=== PATIENT | male | born 1950 | race Caucasian/White ===

== ENCOUNTER 2017-09-01 16:00 | Inpatient (IN) | payer MEDICARE, OTHER ==
[2017-09-01] MEDS ORDERED: Albuterol/Ipratropium 3.0-0.5 MG/3 ML Neb Soln NEB ONE (17:10)
[2017-09-01] MEDS ORDERED: Acetaminophen 500 MG Tab PO ONE (17:13)
--- NOTE | 2017-09-01 17:19 | EDM.PDOC ---
ED HPI GENERAL MEDICAL PROBLEM - General Chief Complaint: Respiratory Problem Stated Complaint: CHEST PAIN,SOB Time Seen by Provider: 09/01/17 16:45 Source of Information: Reports: Patient, Family History Limitations: Reports: No Limitations - History of Present Illness INITIAL COMMENTS - FREE TEXT/NARRATIVE: 67 YO WM presents to ER complaining of 3 day history of shortness of breath with productive cough and left sided chest pain. Pt reports history of CAD with CABG x 3 vessels 2009. Pt also with history of COPD and remote tobacco use ( quit in 2009). Pt states he has been using his advair BID but hasn't used his rescue inhaler. Pt states he feels better on oxygen. Onset Date: 08/30/17 Duration: Day(s): (3), Waxing/Waning Location: Reports: Chest Quality: Reports: Pressure Severity: Mild Associated Symptoms: Reports: Chest Pain, cough w sputum, Fever/Chills, Loss of Appetite, Shortness of Breath. 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 - Related Data Allergies Allergy/AdvReac Type Severity Reaction Status Date / Time No Known Drug Allergies Allergy Other Verified 09/01/17 16:51 Home Meds: Home Meds Albuterol [Proventil HFA] 1 puff INH Q4H PRN 09/01/17 [History] Aspirin [Adult Low Dose Aspirin EC] 81 mg PO BEDTIME 09/01/17 [History] Calcium Carbonate/Vitamin D3 [Calcium 500 + Vit D Caplet] 1 tab PO BID 09/01/17 [History] Carvedilol [Carvedilol] 25 mg PO BIDMEALS 09/01/17 [History] Cholecalciferol (Vitamin D3) [Vitamin D3] 2,000 unit PO DAILY 09/01/17 [History] Clopidogrel [Plavix] 75 mg PO BEDTIME 09/01/17 [History] Fenofibrate [Fenofibrate] 160 mg PO BEDTIME 09/01/17 [History] Fluticasone/Salmeterol [Advair 250-50 Diskus] 1 puff INH BID 09/01/17 [History] Furosemide 20 mg PO 1800 09/01/17 [History] Furosemide 40 mg PO DAILY 09/01/17 [History] Losartan [Cozaar] 100 mg PO DAILY 09/01/17 [History] Simvastatin [Zocor] 20 mg PO BEDTIME 09/01/17 [History] metFORMIN HCl [Metformin HCl ER] 1,000 mg PO BID 09/01/17 [History] Past Medical History HEENT History: Reports: Impaired Vision Cardiovascular History: Reports: [place] Respiratory History: Reports: COPD Genitourinary History: Reports: None Endocrine/Metabolic History: Reports: Diabetes, Type II - Past Surgical History Head Surgeries/Procedures: Reports: None HEENT Surgical History: Reports: Cataract Surgery Cardiovascular Surgical History: Reports: Coronary Artery Bypass Other Cardiovascular Surgeries/Procedures: 3 vessel bypass 2009 Respiratory Surgical History: Reports: None Social & Family History - Family History Family Medical History: Noncontributory - Tobacco Use Smoking Status *Q: Former Smoker Years of Tobacco use: 40 Used Tobacco, but Quit: Yes Month Tobacco Last Used: 10 Second Hand Smoke Exposure: No - Caffeine Use Caffeine Use: Reports: Coffee - Recreational Drug Use Recreational Drug Use: No ED ROS GENERAL - Review of Systems Review Of Systems: See Below Constitutional: Reports: Fever, Chills HEENT: Reports: No Symptoms Respiratory: Reports: Shortness of Breath, Wheezing, Cough, Sputum Cardiovascular: Reports: Chest Pain Endocrine: Reports: No Symptoms GI/Abdominal: Reports: No Symptoms : Reports: No Symptoms Musculoskeletal: Reports: No Symptoms Skin: Reports: No Symptoms Neurological: Reports: No Symptoms Psychiatric: Reports: No Symptoms Hematologic/Lymphatic: Reports: No Symptoms Immunologic: Reports: No Symptoms ED EXAM, GENERAL - Physical Exam Exam: See Below Exam Limited By: No Limitations General Appearance: Alert, WD/WN, No Apparent Distress Nose: Normal Inspection, Normal Mucosa, No Blood Throat/Mouth: Normal Inspection, Normal Lips, Normal Teeth, Normal Gums, Normal Oropharynx, Normal Voice, No Airway Compromise Head: Atraumatic, Normocephalic Neck: Normal Inspection, Supple, Non-Tender, Full Range of Motion Respiratory/Chest: No Respiratory Distress, No Accessory Muscle Use, Chest Non- Tender, Decreased Breath Sounds, Wheezing Cardiovascular: Normal Peripheral Pulses, Regular Rate, Rhythm, No Edema, No Gallop, No JVD, No Murmur, No Rub, Tachycardia GI/Abdominal: Normal Bowel Sounds, Soft, Non-Tender, No Organomegaly, No Distention, No Abnormal Bruit, No Mass Back Exam: Normal Inspection, Full Range of Motion, NT Extremities: Normal Inspection, Normal Range of Motion, Non-Tender, Normal Capillary Refill, No Pedal Edema Neurological: Alert, Oriented, CN II-XII Intact, Normal Cognition, Normal Gait, Normal Reflexes, No Motor/Sensory Deficits Psychiatric: Normal Affect, Normal Mood Skin Exam: Warm, Dry, Intact, Normal Color, No Rash Lymphatic: No Adenopathy EKG INTERPRETATION EKG Date: 09/01/17 Time: 16:41 Rhythm: NSR Rate (Beats/Min): 119 [place]: Normal P-Wave: Present QRS: Normal ST-T: Normal QT: Normal Comparison: NA - No Prior EKG Course - Vital Signs Last Recorded V/S: Last Vital Signs Temp 38.2 C H 09/01/17 17:17 Pulse 117 H 09/01/17 17:11 Resp 24 H 09/01/17 16:37 BP 149/85 H 09/01/17 16:37 Pulse Ox 97 09/01/17 17:11 - Orders/Labs/Meds Orders: Active Orders 24 hr Category Date Time Status EKG Documentation Completion [RC] ASDIRECTED Care 09/01/17 16:32 Active RT Aerosol Therapy [RC] ASDIRECTED Care 09/01/17 17:11 Active Chest 2V [CR] Stat Exams 09/01/17 16:32 Taken CULTURE BLOOD [BC] Stat Lab 09/01/17 17:13 Ordered CULTURE BLOOD [BC] Stat Lab 09/01/17 17:13 Ordered INFLUENZA A+B AG SCREEN [RM] Stat Lab 09/01/17 16:35 Received Blood Culture x2 Reflex Set [OM.PC] Stat Oth 09/01/17 17:12 Ordered EKG 12 Lead [EK] Routine Ther 09/01/17 16:32 Ordered Labs: Laboratory Tests 09/01/17 09/01/17 Range/Units 16:35 16:35 WBC 6.6 (5.0-10.0) 10^3/uL RBC 3.86 L (4.50-6.00) 10^6/uL Hgb 11.9 L (13.0-17.0) g/dL Hct 35.4 L (40.0-52.0) % MCV 91.6 (82.0-92.0) fL MCH 30.8 (27.0-31.0) pg MCHC 33.6 (32.0-36.0) g/dL RDW 13.5 (11.5-14.5) % Plt Count 207 (150-300) 10^3/uL MPV 6.8 L (7.4-10.4) fL Neut % (Auto) 80.1 H (50.0-70.0) % Lymph % (Auto) 7.2 L (20.0-40.0) % [place] % (Auto) 11.2 H (2.0-8.0) % Eos % (Auto) 0.4 L (1.0-3.0) % Baso % (Auto) 1.1 H (0.0-1.0) % Neut # (Auto) 5.3 (2.5-7.0) 10^3/uL Lymph # (Auto) 0.5 L (1.0-4.0) 10^3/uL [place] # (Auto) 0.7 (0.1-0.8) 10^3/uL Eos # (Auto) 0.0 L (0.1-0.3) 10^3/uL Baso # (Auto) 0.1 (0.0-0.1) 10^3/uL Sodium 143 (136-145) mmol/L Potassium 4.7 (3.3-5.3) mmol/L Chloride 104 (98-115) mmol/L Carbon Dioxide 25.3 (21.0-32.0) mmol/L BUN 27 H (6-25) mg/dL Creatinine 1.67 H (0.51-1.17) mg/dL Est Cr Clr Drug Dosing 42.10 mL/min Estimated GFR (MDRD) 41 mL/min Glucose 203 H (70-110) mg/dL Calcium 9.1 (8.7-10.3) mg/dL Total Bilirubin 1.2 H (0.2-1.0) mg/dL AST 39 H (15-37) U/L ALT 53 (12-78) U/L Alkaline Phosphatase 58 (46-116) IU/L Creatine Kinase 97 (26-276) U/L CK-MB (CK-2) < 0.50 (0.00-4.30) ng/mL Troponin I 0.10 H* (0.00-0.070) ng/mL B-Natriuretic Peptide 349 H (0-100) pg/mL Total Protein 8.2 (6.4-8.2) g/dL Albumin 4.17 (3.00-4.80) g/dL Meds: Medications Discontinued Medications Generic Name Dose Route Start Last Admin Trade Name Roldan PRN Reason Stop Dose Admin Acetaminophen 1,000 mg 09/01/17 17:13 09/01/17 17:17 Tylenol Extra Strength PO 09/01/17 17:14 1,000 mg ONETIME ONE Administration Albuterol/Ipratropium 3 ml 09/01/17 17:10 09/01/17 17:18 Duoneb 3.0-0.5 Mg/3 Ml NEB 09/01/17 17:11 3 ml ONETIME ONE Administration - Radiology Interpretation Free Text/Narrative:: CXR- NAD Departure - Departure Time of Disposition: 18:06 Disposition: Admitted As Inpatient 67 Condition: Fair Clinical Impression: Influenza A, Hypoxia, COPD exacerbation, Elevated troponin I level, Renal insufficiency, mild - Discharge Information Referrals: Lana Sousa, [employer] WORKER [Primary Care Provider] - Forms: ED Department Discharge - My Orders Last 24 Hours: My Active Orders 09/01/17 16:32 EKG Documentation Completion [RC] ASDIRECTED Chest 2V [CR] Stat EKG 12 Lead [EK] Routine 09/01/17 16:35 INFLUENZA A+B AG SCREEN [RM] Stat 09/01/17 17:11 RT Aerosol Therapy [RC] ASDIRECTED 09/01/17 17:12 Blood Culture x2 Reflex Set [OM.PC] Stat 09/01/17 17:13 CULTURE BLOOD [BC] Stat CULTURE BLOOD [BC] Stat - Assessment/Plan Last 24 Hours: My Active Orders 09/01/17 16:32 EKG Documentation Completion [RC] ASDIRECTED Chest 2V [CR] Stat EKG 12 Lead [EK] Routine 09/01/17 16:35 INFLUENZA A+B AG SCREEN [RM] Stat 09/01/17 17:11 RT Aerosol Therapy [RC] ASDIRECTED 09/01/17 17:12 Blood Culture x2 Reflex Set [OM.PC] Stat 09/01/17 17:13 CULTURE BLOOD [BC] Stat CULTURE BLOOD [BC] Stat Assessment:: 1. COPD exacerbation 2. Influenza A 3. elevated trop I 4. Hypoxia 5. Renal insufficiency Plan: 1. Admit for hypoxia- [place] Sudheer 2. oxygen 3. tamiflu 4. supportive care 5. repeat trop I/labs in am 6. duoneb tx Q4
[2017-09-01 17:27] LABS: CHLORIDE,CL 104 mmol/L (98-115); SODIUM,NA 143 mmol/L (136-145)
[2017-09-01] MEDS ORDERED: Sodium Chloride 0.9% 5 ML Syringe FLUSH PRN (17:58)
[2017-09-01] MEDS ORDERED: Albuterol/Ipratropium 3.0-0.5 MG/3 ML Neb Soln NEB PRN (17:58)
[2017-09-01] MEDS ORDERED: Acetaminophen 325 MG Tab PO PRN (17:58)
[2017-09-01] MEDS ORDERED: methylPREDNISolone Sodium Succinate 125 MG/2 ML SDV IVPUSH ONE (18:03)
[2017-09-01] MEDS ORDERED: Nitroglycerin 2% Oint 1 GM UD Packet TOP PRN (18:04)
[2017-09-01] MEDS: Aspirin 325 MG Tab.EC PO SCH (19:11)
[2017-09-01] MEDS: Oseltamivir 75 MG Cap PO SCH ×2 (19:11→20:00)
[2017-09-01] MEDS ORDERED: Heparin Sodium 5,000 Units/ML Vial IVPUSH ONE (19:59)
[2017-09-01] MEDS ORDERED: Nitroglycerin 0.4 MG Tab.SL SL PRN (20:19)
[2017-09-01] MEDS ORDERED: Lidocaine 2% 100 MG/5 ML Syringe IVPUSH PRN (20:19)
[2017-09-01] MEDS ORDERED: EPINEPHrine 1:10,000 1 MG/10 ML Syringe IVPUSH PRN (20:19)
[2017-09-01] MEDS ORDERED: Atropine 0.1 MG/ML 10 ML Syringe IVPUSH PRN (20:19)
[2017-09-01] MEDS ORDERED: Heparin Sodium 5,000 Units/ML Vial SUBCUT ONE (20:28)
[2017-09-01] MEDS ORDERED: Fenofibrate 160 MG Tab PO SCH (21:00)
[2017-09-01] MEDS: Simvastatin 20 MG Tab PO SCH (21:40)
[2017-09-01] MEDS: Fluticasone/Salmeterol 250-50 MCG Inhalation Powder 14/Diskus INH SCH (21:40)
[2017-09-01] MEDS: Clopidogrel 75 MG Tab PO SCH (21:40)
[2017-09-02] MEDS: Fluticasone/Salmeterol 250-50 MCG Inhalation Powder 14/Diskus INH SCH ×2 (07:25→20:29)
[2017-09-02] MEDS: Calcium Citrate/Vitamin D3 315 MG-250 Unit Tab PO SCH ×2 (07:32→17:33)
[2017-09-02] MEDS: Carvedilol 12.5 MG Tab PO SCH ×2 (07:35→17:33)
[2017-09-02] MEDS: Insulin Aspart 100 Units/ML 3 ML Pen SUBCUT SCH ×3 (07:55→17:32)
[2017-09-02] MEDS: Losartan 50 MG Tab PO SCH (08:01)
[2017-09-02] MEDS: Furosemide 40 MG Tab PO SCH (08:02)
[2017-09-02] MEDS: Cholecalciferol (Vitamin D3) 1,000 Unit Tab PO SCH (08:02)
[2017-09-02] MEDS: Oseltamivir 75 MG Cap PO SCH ×2 (08:02→20:30)
[2017-09-02] MEDS: Aspirin 325 MG Tab.EC PO SCH (08:02)
[2017-09-02] MEDS ORDERED: Sodium Chloride 0.9% 750 ML IV ONE (09:19)
[2017-09-02] MEDS ORDERED: Fenofibrate 160 MG Tab PO SCH (09:25)
--- NOTE | 2017-09-02 09:44 | PCM.HP ---
H&P History of Present Illness - General Date of Service: 09/02/17 Admit Problem/Dx: Admission Diagnosis/Problem Admission Diagnosis/Problem Hypoxia Source of Information: Patient, Old Records, RN History Limitations: Reports: No Limitations - History of Present Illness Initial Comments - Free Text/Narative: This is a 67 year old male who presented to the ED with complaints of 3 days of shortness of breath with a productive cough and left-sided chest pain. The patient was worked up in the ED and found to be positive for influenza A, COPD exacerbation, and rule out CT. The patient's past medical history is significant for COPD for which he uses Advair. He also has a history of a CABG x 3 in 2009. He quit smoking in 2009. He lives at home with his . He did not receive an influenza vaccine this year, but has received a pneumonia vaccine. - Related Data Allergies/Adverse Reactions: Allergies Allergy/AdvReac Type Severity Reaction Status Date / Time No Known Drug Allergies Allergy Other Verified 09/01/17 16:51 Home Medications: Home Meds Albuterol [Proventil HFA] 1 puff INH Q4H PRN 09/01/17 [History] Aspirin [Adult Low Dose Aspirin EC] 81 mg PO BEDTIME 09/01/17 [History] Calcium Carbonate/Vitamin D3 [Calcium 500 + Vit D Caplet] 1 tab PO BID 09/01/17 [History] Carvedilol [Carvedilol] 25 mg PO BIDMEALS 09/01/17 [History] Cholecalciferol (Vitamin D3) [Vitamin D3] 2,000 unit PO DAILY 09/01/17 [History] Clopidogrel [Plavix] 75 mg PO BEDTIME 09/01/17 [History] Fenofibrate [Fenofibrate] 160 mg PO BEDTIME 09/01/17 [History] Fluticasone/Salmeterol [Advair 250-50 Diskus] 1 puff INH BID 09/01/17 [History] Furosemide 20 mg PO 1800 09/01/17 [History] Furosemide 40 mg PO DAILY 09/01/17 [History] Losartan [Cozaar] 100 mg PO DAILY 09/01/17 [History] Simvastatin [Zocor] 20 mg PO BEDTIME 09/01/17 [History] metFORMIN HCl [Metformin HCl ER] 1,000 mg PO BID 09/01/17 [History] Past Medical History HEENT History: Reports: Impaired Vision Cardiovascular History: Reports: CT Respiratory History: Reports: COPD Genitourinary History: Reports: None Endocrine/Metabolic History: Reports: Diabetes, Type II - Infectious Disease History Infectious Disease History: Reports: Influenza - Past Surgical History Head Surgeries/Procedures: Reports: None HEENT Surgical History: Reports: Cataract Surgery Cardiovascular Surgical History: Reports: Coronary Artery Bypass Other Cardiovascular Surgeries/Procedures: 3 vessel bypass 2010 Respiratory Surgical History: Reports: None Social & Family History - Family History Family Medical History: Noncontributory - Tobacco Use Smoking Status *Q: Former Smoker Years of Tobacco use: 40 Used Tobacco, but Quit: Yes Month Tobacco Last Used: 10 Second Hand Smoke Exposure: No - Caffeine Use Caffeine Use: Reports: Soda - Recreational Drug Use Recreational Drug Use: No H&P Review of Systems - Review of Systems: Review Of Systems: See Below General: Reports: Chills, Weakness, Fatigue, Night Sweats, Decreased Appetite. Denies: Fever HEENT: Reports: Ear Pain (left ear), Glasses, Sinus Congestion. Denies: Headaches, Sore Throat Pulmonary: Reports: Cough, Sputum (dark brown). Denies: Shortness of Breath, Wheezing Cardiovascular: Denies: Chest Pain, Edema Gastrointestinal: Denies: Abdominal Pain, Constipation, Diarrhea, Nausea Genitourinary: Reports: No Symptoms Neurological: Denies: Headache Exam - Exam Exam: See Below - Vital Signs Vital Signs: Last Vital Signs Temp 98 F 09/02/17 06:29 Pulse 77 09/02/17 07:35 Resp 18 09/02/17 06:29 BP 110/67 09/02/17 08:01 Pulse Ox 97 09/02/17 07:25 Weight: 166 lb 6.4 oz - Exam Quality Assessment: Supplemental Oxygen (2 liters per nasal cannula saturation of 97%, does not typically wear oxygen), DVT Prophylaxis (Score of 2, will apply Shay stockings. Patient up and moving. ) General: Alert, Oriented, Cooperative, Other (No distress) HEENT: Conjunctiva Clear, Hearing Intact, Mucosa Moist & [place], Posterior Pharynx Clear, TMs Clear, Glasses Neck: Supple, Trachea Midline. No: Lymphadenopathy Lungs: Normal Respiratory Effort, Decreased Breath Sounds (throughout). No: Crackles, Rales, Wheezing Cardiovascular: Regular Rate, Regular Rhythm, Normal S1, Normal S2 GI/Abdominal Exam: Normal Bowel Sounds, Soft, Non-Tender Extremities: No Pedal Edema Skin: Warm, Dry Neurological: Normal Speech Neuro Extensive - Mental Status: Alert, Oriented x3, Normal Mood/Affect Psychiatric: Alert, Normal Affect, Normal Mood - Patient Data Lab Results Last 24 hrs: Laboratory Results - last 24 hr 09/02/17 09/02/17 09/02/17 Range/Units 07:20 07:20 07:31 WBC 4.5 L (5.0-10.0) 10^3/uL RBC 3.29 L (4.50-6.00) 10^6/uL Hgb 10.3 L D (13.0-17.0) g/dL Hct 30.5 L (40.0-52.0) % MCV 92.7 H (82.0-92.0) fL MCH 31.2 H (27.0-31.0) pg MCHC 33.6 (32.0-36.0) g/dL RDW 13.4 (11.5-14.5) % Plt Count 189 (150-300) 10^3/uL MPV 6.7 L (7.4-10.4) fL Neut % (Auto) 84.9 H (50.0-70.0) % Lymph % (Auto) 7.4 L (20.0-40.0) % [place] % (Auto) 7.2 (2.0-8.0) % Eos % (Auto) 0.2 L (1.0-3.0) % Baso % (Auto) 0.3 (0.0-1.0) % Neut # (Auto) 3.9 (2.5-7.0) 10^3/uL Lymph # (Auto) 0.3 L (1.0-4.0) 10^3/uL [place] # (Auto) 0.3 (0.1-0.8) 10^3/uL Eos # (Auto) 0.0 L (0.1-0.3) 10^3/uL Baso # (Auto) 0.0 (0.0-0.1) 10^3/uL Sodium 141 (136-145) mmol/L Potassium 4.5 (3.3-5.3) mmol/L Chloride 104 (98-115) mmol/L Carbon Dioxide 25.8 (21.0-32.0) mmol/L BUN 33 H (6-25) mg/dL Creatinine 1.40 H (0.51-1.17) mg/dL Est Cr Clr Drug Dosing 50.21 mL/min Estimated GFR (MDRD) 51 mL/min Glucose 238 H (70-110) mg/dL POC Glucose 215 H (74-106) mg/dl Calcium 8.8 (8.7-10.3) mg/dL Troponin I 0.06 (0.00-0.070) ng/mL Result Diagrams: 09/02/17 07:20 09/02/17 07:20 EKG INTERPRETATION EKG Date: 09/01/17 Time: 16:41 Rhythm: Other (Sinus tachycardia with PACs) Rate (Beats/Min): 119 [place]: Normal P-Wave: Present QRS: Normal ST-T: Other (T wave abnormality in inferior leads) QT: Normal Comparison: Change From Previous EKG (new PACs versus old PVCs) *Q Meaningful Use (ADM) - VTE *Q VTE Criteria *Q: - Stroke *Q Stroke Criteria *Q: - AMI *Q AMI Criteria *Q: Problem List Initiated/Reviewed/Updated: Yes Orders Last 24hrs: Active Orders 24 hr Category Date Time Status Patient Status [ADT] Routine ADT 09/01/17 17:59 Ordered Blood Glucose Check, Bedside [RC] TIDMEALS Care 09/01/17 17:58 Active Oxygen Therapy [RC] 0100,0900,1700 Care 09/01/17 17:59 Active Peripheral IV Care [RC] . DIRECTED Care 09/01/17 18:02 Active Pulse Oximetry [RC] .PRN Care 09/01/17 18:00 Active RT Aerosol Therapy [RC] .PRN Care 09/01/17 18:02 Active Up ad Jennifer [RC] ASDIRECTED Care 09/02/17 09:17 Active Vital Signs [RC] 0700,1500,2300 Care 09/02/17 09:17 Active [employer] Diet [DIET] Diet 09/01/17 Dinner Active BMP [BASIC METABOLIC PANEL,BMP] [CHEM] AM Lab 09/03/17 05:11 Ordered CBC WITH AUTO DIFF [HEME] AM Lab 09/03/17 05:11 Ordered CULTURE SPUTUM + SMEAR [RM] Stat Lab 09/01/17 20:05 Ordered Acetaminophen [Tylenol] Med 09/01/17 17:58 Active 650 mg PO Q4H PRN Albuterol/Ipratropium [DuoNeb 3.0-0.5 MG/3 ML] Med 09/02/17 11:00 Active 3 ml NEB Q6HRRT Aspirin [Halfprin] Med 09/02/17 21:00 Active 81 mg PO BEDTIME Atropine [Atropine 0.1 MG/ML] Med 09/01/17 20:19 Active 0 mg IVPUSH ASDIRECTED PRN Calcium Citrate/Vitamin D3 [Calcium Citrate + D] Med 09/02/17 08:00 Active 2 tab PO BIDMEALS Carvedilol [Coreg] Med 09/02/17 08:00 Active 25 mg PO BIDMEALS Cholecalciferol (Vitamin D3) [Vitamin D3] Med 09/02/17 09:00 Active 2,000 units PO DAILY Clopidogrel [Plavix] Med 09/01/17 21:00 Active 75 mg PO BEDTIME EPINEPHrine [EPINEPHrine 1:10,000] Med 09/01/17 20:19 Active 1 mg IVPUSH ASDIRECTED PRN Fluticasone/Salmeterol [Advair Diskus 250-50] Med 09/01/17 21:00 Active 0 puff INH BIDRT Furosemide [Lasix] Med 09/02/17 18:00 Active 20 mg PO 1800 Furosemide [Lasix] Med 09/02/17 09:00 Active 40 mg PO DAILY Insulin Aspart [NovoLOG] Med 09/02/17 08:00 Active See Protocol SUBCUT TIDMEALS Lidocaine 2% [Xylocaine 2%] Med 09/01/17 20:19 Active 0 mg IVPUSH ASDIRECTED PRN Losartan [Cozaar] Med 09/02/17 09:00 Active 100 mg PO DAILY Nitroglycerin [Nitro-Bid 2%] Med 09/01/17 18:04 Active 1 gm TOP Q6H PRN Nitroglycerin [Nitrostat] Med 09/01/17 20:19 Active 0.4 mg SL ASDIRECTED PRN Oseltamivir [Tamiflu] Med 09/01/17 18:15 Active 75 mg PO BID Patient's Own Medication [Ptom] Med 09/02/17 09:25 Active 1 each PO BEDTIME Simvastatin [Zocor] Med 09/01/17 21:00 Active 20 mg PO BEDTIME Sodium Chloride 0.9% [Normal Saline] 750 ml Med 09/02/17 09:19 Active IV .BOLUS Sodium Chloride 0.9% [Syrex Flush] Med 09/01/17 17:58 Active 5 ml FLUSH Q8HR PRN Isolation [COMM] Routine Oth 09/01/17 18:03 Ordered Peripheral IV Insertion Adult [OM.PC] Routine Oth 09/01/17 17:58 Ordered Resuscitation Status Routine Resus Stat 09/01/17 17:58 Ordered Medication Orders Acetaminophen (Tylenol) 650 mg PO Q4H PRN PRN Reason: Pain (Mild 1-3)/fever Albuterol/Ipratropium (Duoneb 3.0-0.5 Mg/3 Ml) 3 ml NEB Q6HRRT [facility] Aspirin (Halfprin) 81 mg PO BEDTIME RAFAELA Atropine Sulfate (Atropine 0.1 Mg/Ml) 0 mg IVPUSH ASDIRECTED PRN PRN Reason: Heart Calcium Citrate (Calcium Citrate + D) 2 tab PO BIDMEALS [facility] Last Admin: 09/02/17 07:32 Dose: 2 tab Carvedilol (Coreg) 25 mg PO BIDMEALS [facility] Last Admin: 09/02/17 07:35 Dose: 25 mg Cholecalciferol (Vitamin D3) 2,000 units PO DAILY [facility] Last Admin: 09/02/17 08:02 Dose: 2,000 units Clopidogrel Bisulfate (Plavix) 75 mg PO BEDTIME [facility] Last Admin: 09/01/17 21:40 Dose: 75 mg Epinephrine HCl (Epinephrine 1:10,000) 1 mg IVPUSH ASDIRECTED PRN PRN Reason: Heart Furosemide (Lasix) 20 mg PO 1800 RAFAELA Furosemide (Lasix) 40 mg PO DAILY [facility] Last Admin: 09/02/17 08:02 Dose: 40 mg Sodium Chloride (Normal Saline) 750 mls @ 750 mls/hr IV .BOLUS ONE Stop: 09/02/17 10:18 Insulin Aspart (Novolog) 0 unit SUBCUT TIDMEALS [facility] PRN Reason: Protocol Last Admin: 09/02/17 07:55 Dose: 2 units Lidocaine HCl (Xylocaine 2%) 0 mg IVPUSH ASDIRECTED PRN PRN Reason: Heart Losartan Potassium (Cozaar) 100 mg PO DAILY [facility] Last Admin: 02/14/18 08:01 Dose: 100 mg Nitroglycerin (Nitro-Bid 2%) 1 gm TOP Q6H PRN PRN Reason: Chest Pain Nitroglycerin (Nitrostat) 0.4 mg SL ASDIRECTED PRN PRN Reason: Heart Oseltamivir Phosphate (Tamiflu) 75 mg PO BID [facility] Last Admin: 09/02/17 08:02 Dose: 75 mg Admin: 09/01/17 20:00 Dose: Not Given Admin: 09/01/17 19:11 Dose: 75 mg Fenofibrate 160 Mg (Tab) 1 each PO BEDTIME [facility] Fluticasone/Salmeterol (Advair Diskus 250-50) 0 puff INH BIDRT [facility] Last Admin: 09/02/17 07:25 Dose: 1 inhalation Admin: 09/01/17 21:40 Dose: 1 inhalation Simvastatin (Zocor) 20 mg PO BEDTIME [facility] Last Admin: 09/01/17 21:40 Dose: 20 mg Sodium Chloride (Syrex Flush) 5 ml FLUSH Q8HR PRN PRN Reason: Keep Vein Open Last Admin: 09/01/17 19:12 Dose: 5 ml Assessment/Plan Comment:: HPI: This is a 67 year old male who presented to the ED with complaints of 3 days of shortness of breath with a productive cough and left-sided chest pain. The patient was worked up in the ED and found to be positive for influenza A, COPD exacerbation, and rule out CT. The patient's past medical history is significant for COPD for which he uses Advair. He also has a history of a CABG x 3 in 2009. He quit smoking in 2009. He lives at home with his . He did not receive an influenza vaccine this year, but has received a pneumonia vaccine. Pertinent ED findings: Influenza swab positive for A Chest x-ray negative for acute process Troponin elevated at 0.10 EKG sinus tachycardia with PACs, ST & T wave abnormality consider inferior ischemia PRIMARY ASSESSMENT/PLAN: Influenza A. Tamiflu 75 mg po BID. WBC 4.5 with left shift. CBC in AM. Blood cultures and sputum culture pending. Rule out CT. Troponin normal at 0.06. Denies active chest pain. Discontinue telemetry. ED EKG-sinus tachycardia with PACs, ST & T wave abnormality consider inferior ischemia; changed from previous EKG (2016) sinus rhythm with PVCs , t wave abnormality consider inferolateral ischemia. Patient did receive heparin IV push and full strength aspirin. Patient on plavix, baby aspirin, BB, and ARB. COPD exacerbation, improving. One time dose of IV solumedrol 125 mg given. No active wheezing. Will continue to monitor. Change DuoNebs to QID. Continue Advair. Try to wean off oxygen when able. Will continue to monitor neutrophil count as may need to treat underlying bacterial infection if continues to elevate. Acute kidney injury related to dehydration. BUN 33, creatinine 1.40. Normal creatinine 1.02 with GFR of 73. Will give NS 750 mL IV bolus now. Continue to push oral fluids. Repeat BMP in AM. Anemia. Hgb down to 10.3. 2016 hgb was 13.5. No active signs of bleeding. Repeat CBC in AM. SECONDARY ASSESSMENT/PLAN: CAD, s/p 3 vessel CABG (2009). Continue plavix, baby aspirin, BB, and ARB. Chronic combined heart failure. ECHO (2014) EF 45%, mildly reduced systolic function, mild diastolic dysfunction, no LVH. BNP elevated at 349 on admission, however appears dry. Will give fluid bolus. Hold evening dose of lasix 20 mg tonight. Received 40 mg po this morning. Hypertension, stable. Continue current medication regimen. Mixed hyperlipidemia. Continue fenofibrate and simvastatin. LDL 59 (2016). DVT prophylaxis. Score of 2. Shay stockings applied. Overall treatment plan: Continue with tamiflu and DuoNebs. Give 1 time fluid bolus for dehydration. Repeat labs in AM. Patient may be able to be discharged tomorrow pending kidney function and clinical picture.
[2017-09-02] MEDS: Albuterol/Ipratropium 3.0-0.5 MG/3 ML Neb Soln NEB SCH ×2 (10:51→17:16)
[2017-09-02] MEDS ORDERED: Menthol 7.6 MG Sugar Free Lozenge PO PRN (17:25)
[2017-09-02] MEDS ORDERED: Furosemide 20 MG Tab PO SCH (18:00)
[2017-09-02] MEDS: Menthol 7.6 MG Sugar Free Lozenge PO PRN ×2 (18:17→20:37)
[2017-09-02] MEDS: Clopidogrel 75 MG Tab PO SCH (20:30)
[2017-09-02] MEDS: Simvastatin 20 MG Tab PO SCH (20:30)
[2017-09-02] MEDS ORDERED: Aspirin 81 MG Tab.EC PO SCH (21:00)
[2017-09-03] MEDS: Albuterol/Ipratropium 3.0-0.5 MG/3 ML Neb Soln NEB SCH ×3 (00:13→10:58)
[2017-09-03] MEDS: Fluticasone/Salmeterol 250-50 MCG Inhalation Powder 14/Diskus INH SCH (08:06)
[2017-09-03] MEDS: Calcium Citrate/Vitamin D3 315 MG-250 Unit Tab PO SCH (08:07)
[2017-09-03] MEDS: Carvedilol 12.5 MG Tab PO SCH (08:07)
[2017-09-03] MEDS: Oseltamivir 75 MG Cap PO SCH ×2 (08:08→15:36)
[2017-09-03] MEDS: Insulin Aspart 100 Units/ML 3 ML Pen SUBCUT SCH ×2 (08:08→12:00)
[2017-09-03] MEDS: Losartan 50 MG Tab PO SCH (08:09)
[2017-09-03] MEDS: Cholecalciferol (Vitamin D3) 1,000 Unit Tab PO SCH (08:10)
[2017-09-03] MEDS: Furosemide 40 MG Tab PO SCH (08:11)
[2017-09-03] MEDS ORDERED: predniSONE 20 MG Tab PO ONE (10:15)
--- NOTE | 2017-09-07 08:44 | DISCH ---
FINAL DIAGNOSES: Influenza A, myocardial infarction non-STEMI, likely due to rapid ventricular response; strain; chronic obstructive pulmonary disease exacerbation, mild; acute kidney injury related to dehydration, resolved. HISTORY: A 67-year-old gentleman presents to the ED was three days of shortness of breath, productive cough, left-sided chest pain. He came to the ED, was found to be influenza A with a mild COPD exacerbation, slightly elevated troponin. The patient did have COPD history and uses Advair. He has had a CABG x3 in 2009. He quit smoking in 2009. He was admitted for ongoing troponin assessment and treatment for Tamiflu and medications for assistance to improve his COPD exacerbation. HOSPITAL COURSE: Hospital course went as expected. He was given IV Solu-Medrol one time 125 mg. Keep DuoNebs to q.i.d. We continue with Advair. He was given some oxygen and we were able to wean that off. He did have influenza A positive, he was started on Tamiflu 75 mg p.o. b.i.d. Blood cultures and sputum cultures were pending on discharge. He did have some mild dehydration. Fluids bolus were given. We increased oral fluids that improved. He had a low DVT prophylaxis score. Shay stockings were applied, however, I did give 4000 units of heparin x1. Troponins were monitored slightly elevated at 0.10, however, subsequently went down to normal 0.06. He no longer had any active chest pain. LABORATORY DATA: Hemoglobin 9.4, hematocrit 28.9. Sodium slightly elevated at 148, potassium 3.9, BUN 35 with creatinine 1.23 responding after fluids. Glucose 136. Troponin normal. Calcium 8.8. PHYSICAL EXAMINATION: VITAL SIGNS: On discharge, temperature 98.7, heart rate 87, blood pressure 118/81, O2 sats without oxygen 93%. GENERAL: The patient did have some wheezing the morning of assessment. I did give him oral prednisone and he was discharged on oral tapering steroids. Microbiology positive influenza A ,however, no growth on blood cultures after 3 days. Negative for influenza B. MEDICATIONS: Tamiflu. He will continue that until post five day therapy. Prednisone taper. He can continue on all other home medications. The patient was ready for discharge by that afternoon. Nurses reporting the patient felt 100% better. No wheezing. No shortness of breath. No chest pain. Followup appointments were given to the patient. He is to continue Tamiflu reporting any chest pain or any fever or any shortness of breath. /[id number]/MODL
== END 2017-09-03 15:40 | disposition home or self-care (01) | DRG 193 ==
LOC: KA.ED 16:00 → KA.MS 17:54 → UNDOADMIN 17:54
PROVIDERS: ADMIT Physician Assistant Medical; ATTEND Nurse Practitioner Family
DX: J09.X2 Influenza due to identified novel influenza A virus with other respiratory manifestations (principal); I21.4 Non-ST elevation (NSTEMI) myocardial infarction; R09.02 Hypoxemia; N28.9 Disorder of kidney and ureter, unspecified; J44.1 Chronic obstructive pulmonary disease with (acute) exacerbation; N17.9 Acute kidney failure, unspecified; E86.0 Dehydration; E11.9 Type 2 diabetes mellitus without complications; I25.10 Atherosclerotic heart disease of native coronary artery without angina pectoris; E78.2 Mixed hyperlipidemia; Z95.1 Presence of aortocoronary bypass graft; Z79.899 Other long term (current) drug therapy; Z87.891 Personal history of nicotine dependence
CPT/HCPCS: 36415; 71046; 80053; 82550; 82553; 83880; 84484; 85025; 87040 ×2; 87804 ×2; 93005; 94640; 99284; 99285; A9270; 80048; 82962; 87070; 87205; J1644; J1815-GY; J2930; J7030

== ENCOUNTER 2017-09-10 15:52 | Inpatient (IN) | payer MEDICARE, OTHER ==
[2017-09-10] MEDS ORDERED: predniSONE 20 MG Tab PO ONE (16:15)
[2017-09-10] MEDS ORDERED: Sodium Chloride 0.9% 1,000 ML IV SCH (17:00)
[2017-09-10] MEDS: Levofloxacin/Dextrose 5%-Water 50 ML IV SCH (17:06)
[2017-09-10] MEDS: Insulin Aspart 100 Units/ML 3 ML Pen SUBCUT SCH (18:26)
[2017-09-10] MEDS: Calcium Citrate/Vitamin D3 315 MG-250 Unit Tab PO SCH (18:28)
[2017-09-10] MEDS: Levofloxacin/Dextrose 5%-Water 100 ML IV SCH (18:29)
[2017-09-10] MEDS: Albuterol/Ipratropium 3.0-0.5 MG/3 ML Neb Soln NEB SCH ×2 (18:34→21:01)
[2017-09-10] MEDS: Simvastatin 20 MG Tab PO SCH (20:58)
[2017-09-10] MEDS: Clopidogrel 75 MG Tab PO SCH (20:58)
[2017-09-10] MEDS: Carvedilol 12.5 MG Tab PO SCH (20:58)
[2017-09-10] MEDS: Aspirin 81 MG Tab.EC PO SCH (20:58)
[2017-09-11] MEDS: Albuterol/Ipratropium 3.0-0.5 MG/3 ML Neb Soln NEB SCH ×6 (00:48→20:39)
[2017-09-11] MEDS: Insulin Aspart 100 Units/ML 3 ML Pen SUBCUT SCH ×3 (08:03→18:12)
[2017-09-11] MEDS: Cholecalciferol (Vitamin D3) 1,000 Unit Tab PO SCH (08:04)
[2017-09-11] MEDS: Calcium Citrate/Vitamin D3 315 MG-250 Unit Tab PO SCH ×2 (08:04→18:11)
[2017-09-11] MEDS: Carvedilol 12.5 MG Tab PO SCH ×2 (08:06→20:38)
--- NOTE | 2017-09-11 10:36 | PN ---
09/11/2017 PATIENT NAME: EARLINE RILEY CHIEF COMPLAINT: Overall feels approximately 50% better, slept well, less mucus production, less cough, less wheezing. HISTORY: 67-year-old gentleman who I saw yesterday at the [facility] for he had come in for increased shortness of breath and COPD. He had been in the hospital approximately two weeks ago due to influenza A. He does have mild COPD. He had considerable amount of mucus production changing from his baseline of white to green tenacious. He had a white count yesterday at [facility] of 18,000 with high neutrophilia, tachypneic and tachycardic, although his oxygen levels were within acceptable parameters. It was felt the patient could benefit from hospitalization for IV antibiotics and close monitoring. PHYSICAL EXAMINATION: GENERAL: The patient is full code. VITAL SIGNS: He is 157 pounds. Heart rate is 92, O2 sats 91%, blood pressure 123/75. The patient is alert and oriented. He was sitting in a chair. Tripod stance initial presentation less dyspneic. LUNGS: He has good breath sounds. Does have some inspiratory wheezing posterior and slightly inspiratory wheeze right axillary area. CV: Regular rate and rhythm with no murmur. GI: Nontender. Good bowel tones. No pedal edema noted. No use of accessory muscle. The patient able to talk full sentences. DIAGNOSTIC DATA: X-rays wet read yesterday. I did not see any definitive absolute consolidation. The diaphragms were cut off. I did not have radiology repeat. Official report still pending. LABORATORY DATA: Labs this morning, white count down to 9.0, hemoglobin 9.7, hematocrit 29.1, platelets 423, neutrophilia 84%. Glucose 176. I am holding his metformin. IMPRESSION/PLAN: 1. COPD with acute exacerbation, likely bacterial component due to his pulmonary pathology, continue with Levaquin 750 mg daily. Nontoxic in appearance. Blood cultures drawn before antibiotics still pending. Respiratory culture received, pending. Continue with DuoNeb. Hold Advair. Oral prednisone reduced to 40 mg daily. Encouraged coughing and deep breathing. The patient responding to treatment significantly. 2. Steroid-induced hyperglycemia in the setting of T2DM. Holding metformin due to acute status. Insulin sliding scale with NovoLog. Continue monitoring Accu-Cheks. Secondary problems: 1. Hypertension controlled on selective Coreg. 2. CAD, nonischemic picture, on DAPT. 3. HLD, statin therapy. 4. Combined chronic systolic and diastolic heart failure history. No fluid overload. We will have to review EMR. Does not appear the patient is on AISHWARYA inhibitor. This will have to be reviewed as outpatient. OVERALL PLAN: Disposition and discharge planning. Continue with inpatient stay. He has been receiving benefit from IV respiratory fluoroquinolone. Ongoing monitoring oxygen status, blood culture surveillance. The patient is clinically improving. He could benefit from another stay of inpatient possible discharge tomorrow on PO ABX.. Close followup as outpatient regarding medication review--ACEI initiation? We will have staff review pneumococcal status likely could start back up on Advair tomorrow. Reduce oral steroid today. Continue Сергей. /[id number]/MODL MTDD
[2017-09-11] MEDS ORDERED: predniSONE 20 MG Tab PO ONE (12:00)
[2017-09-11] MEDS ORDERED: Sodium Chloride 0.9% 5 ML Syringe FLUSH PRN (15:16)
[2017-09-11] MEDS: Levofloxacin/Dextrose 5%-Water 50 ML IV SCH (15:47)
[2017-09-11] MEDS: Levofloxacin/Dextrose 5%-Water 100 ML IV SCH (16:54)
[2017-09-11] MEDS: Aspirin 81 MG Tab.EC PO SCH (20:38)
[2017-09-11] MEDS: Simvastatin 20 MG Tab PO SCH (20:38)
[2017-09-11] MEDS: Clopidogrel 75 MG Tab PO SCH (20:38)
[2017-09-12] MEDS: Albuterol/Ipratropium 3.0-0.5 MG/3 ML Neb Soln NEB SCH ×4 (01:43→10:30)
[2017-09-12] MEDS: Calcium Citrate/Vitamin D3 315 MG-250 Unit Tab PO SCH (08:02)
[2017-09-12] MEDS: Carvedilol 12.5 MG Tab PO SCH (08:04)
[2017-09-12] MEDS: Cholecalciferol (Vitamin D3) 1,000 Unit Tab PO SCH (08:05)
[2017-09-12] MEDS: Insulin Aspart 100 Units/ML 3 ML Pen SUBCUT SCH ×2 (08:06→12:03)
[2017-09-12 08:13] LABS: CHLORIDE,CL 102 mmol/L (98-115); SODIUM,NA 140 mmol/L (136-145)
--- NOTE | 2017-09-12 11:15 | PCM.DCSUM1 ---
Discharge Summary - Discharge Data Discharge Date: 09/12/17 Discharge Disposition: Home, Self-Care 01 Condition: Good - Patient Instructions Diet: Usual Diet as Tolerated Activity: As Tolerated - Discharge Plan Prescriptions/Med Rec: Levofloxacin 500 mg PO DAILY 4 Days #4 tablet Prednisone [IJD: predniSONE] 40 mg PO WITHBREAKFAST 2 Days #4 tab Home Medications: Home Meds Albuterol [Proventil HFA] 1 puff INH Q4H PRN 09/01/17 [History] Aspirin [Adult Low Dose Aspirin EC] 81 mg PO BEDTIME 09/01/17 [History] Calcium Carbonate/Vitamin D3 [Calcium 500 + Vit D Caplet] 1 tab PO BID 09/01/17 [History] Carvedilol 25 mg PO BIDMEALS 09/01/17 [History] Cholecalciferol (Vitamin D3) [Vitamin D3] 2,000 unit PO DAILY 09/01/17 [History] Clopidogrel [Plavix] 75 mg PO BEDTIME 09/01/17 [History] Fenofibrate 160 mg PO BEDTIME 09/01/17 [History] Fluticasone/Salmeterol [Advair 250-50 Diskus] 1 puff INH BID 09/01/17 [History] Furosemide 40 mg PO DAILY@0800 09/01/17 [History] Losartan [Cozaar] 100 mg PO DAILY 09/01/17 [History] Simvastatin [Zocor] 20 mg PO BEDTIME 09/01/17 [History] metFORMIN HCl [Metformin HCl ER] 1,000 mg PO BIDMEALS 09/01/17 [History] Magnesium Oxide 400 mg PO DAILY 09/10/17 [History] Furosemide 20 mg PO DAILY@1700 09/11/17 [History] Levofloxacin 500 mg PO DAILY 4 Days #4 tablet 09/12/17 [Rx] Prednisone [IJD: predniSONE] 40 mg PO WITHBREAKFAST 2 Days #4 tab 09/12/17 [Rx] Referrals: Corona Willard [employer]CHNICIAN [Primary Care Provider] - (Call clinic to schedule appointment for next week.) - Patient Data Vitals - Most Recent: Last Vital Signs Temp 37.2 C 09/12/17 06:35 Pulse 81 09/12/17 08:04 Resp 20 09/12/17 06:35 BP 123/78 09/12/17 08:04 Pulse Ox 94 L 09/12/17 06:35 Weight - Most Recent: 71.305 kg I&O - Last 24 hours: Intake & Output 09/11/17 09/12/17 09/12/17 22:59 06:59 14:59 Intake Total 1176 250 Balance 1176 250 Lab Results - Last 24 hrs: Laboratory Results - last 24 hr 09/11/17 09/11/17 09/12/17 Range/Units 11:29 17:28 06:44 WBC (5.0-10.0) 10^3/uL RBC (4.50-6.00) 10^6/uL Hgb (13.0-17.0) g/dL Hct (40.0-52.0) % MCV (82.0-92.0) fL MCH (27.0-31.0) pg MCHC (32.0-36.0) g/dL RDW (11.5-14.5) % Plt Count (150-300) 10^3/uL MPV (7.4-10.4) fL Neut % (Auto) (50.0-70.0) % Lymph % (Auto) (20.0-40.0) % Dane % (Auto) (2.0-8.0) % Eos % (Auto) (1.0-3.0) % Baso % (Auto) (0.0-1.0) % Neut # (Auto) (2.5-7.0) 10^3/uL Lymph # (Auto) (1.0-4.0) 10^3/uL Dane # (Auto) (0.1-0.8) 10^3/uL Eos # (Auto) (0.1-0.3) 10^3/uL Baso # (Auto) (0.0-0.1) 10^3/uL ESR (0-15) mm/hr Sodium (136-145) mmol/L Potassium (3.3-5.3) mmol/L Chloride (98-115) mmol/L Carbon Dioxide (21.0-32.0) mmol/L BUN (6-25) mg/dL Creatinine (0.51-1.17) mg/dL Est Cr Clr Drug Dosing mL/min Estimated GFR (MDRD) mL/min Glucose (70-110) mg/dL POC Glucose 167 H 225 H 138 H (74-106) mg/dl Calcium (8.7-10.3) mg/dL 09/12/17 09/12/17 09/12/17 Range/Units 07:20 07:20 07:20 WBC 9.0 (5.0-10.0) 10^3/uL RBC 3.16 L (4.50-6.00) 10^6/uL Hgb 9.7 L (13.0-17.0) g/dL Hct 28.6 L (40.0-52.0) % MCV 90.5 (82.0-92.0) fL MCH 30.8 (27.0-31.0) pg MCHC 34.0 (32.0-36.0) g/dL RDW 13.6 (11.5-14.5) % Plt Count 392 H (150-300) 10^3/uL MPV 7.1 L (7.4-10.4) fL Neut % (Auto) 79.9 H (50.0-70.0) % Lymph % (Auto) 11.7 L (20.0-40.0) % Dane % (Auto) 7.7 (2.0-8.0) % Eos % (Auto) 0.6 L (1.0-3.0) % Baso % (Auto) 0.1 (0.0-1.0) % Neut # (Auto) 7.1 H (2.5-7.0) 10^3/uL Lymph # (Auto) 1.1 (1.0-4.0) 10^3/uL Dane # (Auto) 0.7 (0.1-0.8) 10^3/uL Eos # (Auto) 0.1 (0.1-0.3) 10^3/uL Baso # (Auto) 0.0 (0.0-0.1) 10^3/uL ESR 48 H (0-15) mm/hr Sodium 140 (136-145) mmol/L Potassium 4.3 (3.3-5.3) mmol/L Chloride 102 (98-115) mmol/L Carbon Dioxide 29.5 (21.0-32.0) mmol/L BUN 20 (6-25) mg/dL Creatinine 1.12 (0.51-1.17) mg/dL Est Cr Clr Drug Dosing 62.77 mL/min Estimated GFR (MDRD) > 60 mL/min Glucose 141 H (70-110) mg/dL POC Glucose (74-106) mg/dl Calcium 9.5 (8.7-10.3) mg/dL GRIFFIN Results - Last 24 hrs: Microbiology 09/10/17 16:03 - Final Sputum - Expectorated 09/10/17 16:50 Aerobic Blood Culture - Preliminary Blood NO GROWTH AFTER 1 DAY Anaerobic Blood Culture - Preliminary NO GROWTH AFTER 1 DAY Med Orders - Current: Current Medications Albuterol/Ipratropium (Duoneb 3.0-0.5 Mg/3 Ml) 3 ml NEB Q4HWA [facility] Last Admin: 09/12/17 10:30 Dose: 3 ml Aspirin (Halfprin) 81 mg PO BEDTIME [facility] Last Admin: 09/11/17 20:38 Dose: 81 mg Calcium Citrate (Calcium Citrate + D) 2 tab PO BIDMEALS [facility] Last Admin: 09/12/17 08:02 Dose: 2 tab Carvedilol (Coreg) 25 mg PO BID [facility] Last Admin: 09/12/17 08:04 Dose: 25 mg Cholecalciferol (Vitamin D3) 2,000 units PO DAILY [facility] Last Admin: 09/12/17 08:05 Dose: 2,000 units Clopidogrel Bisulfate (Plavix) 75 mg PO BEDTIME [facility] Last Admin: 09/11/17 20:38 Dose: 75 mg Levofloxacin/Dextrose (Levaquin In D5w 250 Mg/50 Ml) 50 mls @ 50 mls/hr IV Q24H [facility] Last Admin: 09/11/17 15:47 Dose: 50 mls/hr Levofloxacin/Dextrose (Levaquin In D5w 500 Mg/100 Ml) 100 mls @ 100 mls/hr IV Q24H [facility] Last Admin: 09/11/17 16:54 Dose: 100 mls/hr Insulin Aspart (Novolog) 0 unit SUBCUT TIDMEALS [facility] PRN Reason: Protocol Last Admin: 09/12/17 08:06 Dose: Not Given Simvastatin (Zocor) 20 mg PO BEDTIME [facility] Last Admin: 09/11/17 20:38 Dose: 20 mg Sodium Chloride (Syrex Flush) 5 ml FLUSH Q8HR PRN PRN Reason: Keep Vein Open Last Admin: 09/11/17 18:12 Dose: 5 ml Discontinued Medications Sodium Chloride (Normal Saline) 600 mls @ 999 mls/hr IV ONETIME ONE Stop: 09/10/17 16:51 Last Admin: 09/10/17 16:59 Dose: 999 mls/hr Sodium Chloride (Normal Saline) 1,000 mls @ 70 mls/hr IV ASDIRECTED RAFAELA Last Admin: 09/11/17 00:48 Dose: 70 mls/hr Prednisone (Prednisone) 60 mg PO ONETIME ONE Stop: 09/10/17 16:16 Last Admin: 09/10/17 16:56 Dose: 60 mg Prednisone (Prednisone) 40 mg PO ONETIME ONE Stop: 09/11/17 12:01 Last Admin: 09/11/17 11:45 Dose: 40 mg *Q Meaningful Use (DIS) - VTE *Q VTE Criteria *Q: - Stroke *Q Stroke Criteria *Q: - AMI *Q AMI Criteria *Q:
== END 2017-09-12 12:30 | disposition home or self-care (01) | DRG 191 ==
LOC: KA.MS 15:52
PROVIDERS: ADMIT Nurse Practitioner Family; ATTEND Family Medicine
DX: J44.1 Chronic obstructive pulmonary disease with (acute) exacerbation (principal); I50.42 Chronic combined systolic (congestive) and diastolic (congestive) heart failure; E11.65 Type 2 diabetes mellitus with hyperglycemia; E78.5 Hyperlipidemia, unspecified; I10 Essential (primary) hypertension; I25.10 Atherosclerotic heart disease of native coronary artery without angina pectoris; E88.81 Metabolic syndrome and other insulin resistance; D72.0 Genetic anomalies of leukocytes; Z87.891 Personal history of nicotine dependence; Z79.899 Other long term (current) drug therapy
CPT/HCPCS: 36415; 80048; 82962; 85025; 85651; 87040; 87070; 87205; 94640; A9270-GY; J1815-GY; J1956; J7030

== ENCOUNTER 2019-03-07 07:31 | Emergency (ER) | payer MEDICARE, OTHER ==
--- NOTE | 2019-03-07 08:55 | EDM.PDOC ---
ED HPI GENERAL MEDICAL PROBLEM - General Chief Complaint: Gastrointestinal Problem Stated Complaint: RECTAL PAIN Time Seen by Provider: 03/07/19 08:00 Source of Information: Reports: Patient History Limitations: Reports: No Limitations - History of Present Illness INITIAL COMMENTS - FREE TEXT/NARRATIVE: 68 YO WM presents to ER complaining of rectal pain with sitting x 3 days. Pt reports history of thrombosed hemorrhoids in the past. Pt denies any rectal bleeding. Pt denies any OTC medication treatment. Pt came to ER with expectation of lancing his hemorrhoids for treatment since that is what was done for him in the past (2000). Pt denies abdominal pain, fever/chills, nausea/ vomiting, or constipation. Pt reports increased pain with defecation. Pt reports relief of pain from lying on his side or standing. Duration: Day(s): (3) Quality: Reports: Ache Severity: Moderate Improves with: Reports: Other (lying and standing) Worsens with: Reports: Other (sitting) Associated Symptoms: Reports: No Other Symptoms Rectal Pain Score (Numeric/FACES): 5 - Related Data Allergies Allergy/AdvReac Type Severity Reaction Status Date / Time No Known Drug Allergies Allergy Other Verified 03/07/19 07:38 Home Meds: Home Meds Albuterol [Proventil HFA] 1 puff INH Q4H PRN 09/01/17 [History] Aspirin [Adult Low Dose Aspirin EC] 81 mg PO BEDTIME 09/01/17 [History] Carvedilol 25 mg PO BIDMEALS 09/01/17 [History] Cholecalciferol (Vitamin D3) [Vitamin D3] 2,000 unit PO DAILY 09/01/17 [History] Clopidogrel [Plavix] 75 mg PO BEDTIME 09/01/17 [History] Furosemide 40 mg PO DAILY@0800 09/01/17 [History] Losartan [Cozaar] 50 mg PO DAILY 09/01/17 [History] Docusate Sodium [Colace] 100 mg PO BID PRN #30 cap 03/07/19 [Rx] Fluticasone/Umeclidin/Vilanter [Trelegy Ellipta 100-62.5-25 MCG] 1 puff INH DAILY 03/07/19 [History] Hydrocortisone [Hydrocortisone 2.5% Crm] 30 gm .XX TID PRN #1 tube 03/07/19 [Rx] atorvaSTATin [Lipitor] 40 mg PO DAILY 03/07/19 [History] Past Medical History HEENT History: Reports: Impaired Vision Cardiovascular History: Reports: Heart Failure, ID, Stents Respiratory History: Reports: COPD Gastrointestinal History: Reports: Hemorrhoids Genitourinary History: Reports: None Musculoskeletal History: Reports: None Neurological History: Reports: None Endocrine/Metabolic History: Reports: Diabetes, Type II Hematologic History: Reports: Blood Transfusion(s) - Infectious Disease History Infectious Disease History: Reports: Chicken Pox, Influenza - Past Surgical History Head Surgeries/Procedures: Reports: None HEENT Surgical History: Reports: Cataract Surgery Cardiovascular Surgical History: Reports: Coronary Artery Bypass Other Cardiovascular Surgeries/Procedures: 3 vessel bypass 2009 Respiratory Surgical History: Reports: None GI Surgical History: Reports: Colonoscopy Neurological Surgical History: Reports: C-Spine Musculoskeletal Surgical History: Reports: None Social & Family History - Family History Family Medical History: Noncontributory - Tobacco Use Smoking Status *Q: Former Smoker Used Tobacco, but Quit: Yes Month/Year Tobacco Last Used: 2003 - Caffeine Use Caffeine Use: Reports: Coffee, Soda - Alcohol Use Days Per Week of Alcohol Use: 1 Number of Drinks Per Day: 3 Total Drinks Per Week: 3 - Recreational Drug Use Recreational Drug Use: No ED ROS GENERAL - Review of Systems Review Of Systems: See Below Constitutional: Reports: No Symptoms HEENT: Reports: No Symptoms Respiratory: Reports: No Symptoms Cardiovascular: Reports: No Symptoms Endocrine: Reports: No Symptoms GI/Abdominal: Reports: No Symptoms. Denies: Black Stool, Bloody Stool, Constipation, Hematemesis, Hematochezia, Mucous in Stool : Reports: No Symptoms Musculoskeletal: Reports: No Symptoms Skin: Reports: No Symptoms Neurological: Reports: No Symptoms Psychiatric: Reports: No Symptoms Hematologic/Lymphatic: Reports: No Symptoms Immunologic: Reports: No Symptoms ED EXAM, GI/ABD - Physical Exam Exam: See Below Exam Limited By: No Limitations General Appearance: Alert, WD/WN, No Apparent Distress Head: Atraumatic, Normocephalic Neck: Normal Inspection Respiratory/Chest: No Respiratory Distress, Lungs Clear, Normal Breath Sounds, No Accessory Muscle Use, Chest Non-Tender Cardiovascular: Normal Peripheral Pulses, Regular Rate, Rhythm, No Edema, No Gallop, No JVD, No Murmur, No Rub GI/Abdominal Exam: Normal Bowel Sounds, Soft, Non-Tender, No Organomegaly, No Distention, No Abnormal Bruit, No Mass, Pelvis Stable Rectal (Males) Exam: Hemorrhoids (without thrombose or bleeding), Tenderness. No: Black Stool, Bloody Stool, Decreased Rectal Tone, Rectal Fissure Back Exam: Normal Inspection, Full Range of Motion, NT Extremities: Normal Inspection, Normal Range of Motion, Non-Tender, Normal Capillary Refill, No Pedal Edema Neurological: Alert, Oriented, CN II-XII Intact, Normal Cognition, Normal Gait, Normal Reflexes, No Motor/Sensory Deficits Psychiatric: Normal Affect, Normal Mood Skin Exam: Warm, Dry, Intact, Normal Color, No Rash Lymphatic: No Adenopathy Course - Vital Signs Last Recorded V/S: Last Vital Signs Temp 35.7 C 03/07/19 07:33 Pulse 105 H 03/07/19 07:33 Resp 18 03/07/19 07:33 BP 140/77 03/07/19 07:33 Pulse Ox 91 L 03/07/19 07:33 Departure - Departure Time of Disposition: 08:50 Disposition: Home, Self-Care 01 Condition: Good Clinical Impression: Hemorrhoids Qualifiers: Hemorrhoid type: unspecified Qualified Code(s): K64.9 - Unspecified hemorrhoids - Discharge Information Prescriptions: Docusate Sodium [Colace] 100 mg PO BID PRN #30 cap PRN Reason: Constipation Hydrocortisone [Hydrocortisone 2.5% Crm] 30 gm .XX TID PRN #1 tube PRN Reason: Pain Instructions: Hemorrhoids Referrals: Lana Sousa, [employer] [Primary Care Provider] - Additional Instructions: 1. discharge home 2. no prolonged sitting 3. sitz baths 4. hydrocortisone suppositories 5. colace 100mg PO BID stool softener 6. follow up in clinic for further evaluation and treatment 7. return to ER for worsening symptoms 8. motrin 600mg/Tylenol 1g every 6 hours as needed for pain - Assessment/Plan Assessment:: 1. uncomplicated hemorrhoids Plan: 1. discharge home 2. no prolonged sitting 3. sitz baths 4. hydrocortisone suppositories 5. colace 100mg PO BID stool softener 6. follow up in clinic for further evaluation and treatment 7. return to ER for worsening symptoms 8. motrin 600mg/Tylenol 1g every 6 hours as needed for pain
== END 2019-03-07 09:00 | disposition home or self-care (01) ==
LOC: KA.ED 07:31
DX: K64.9 Unspecified hemorrhoids (principal); I50.9 Heart failure, unspecified; E11.9 Type 2 diabetes mellitus without complications; I25.2 Old myocardial infarction; Z79.82 Long term (current) use of aspirin; Z79.51 Long term (current) use of inhaled steroids; Z79.899 Other long term (current) drug therapy; Z87.891 Personal history of nicotine dependence
CPT/HCPCS: 99283; 99284

== ENCOUNTER 2019-06-15 10:00 | Emergency (ER) | payer MEDICARE, OTHER ==
--- NOTE | 2019-06-15 11:06 | EDM.PDOC ---
ED HPI GENERAL MEDICAL PROBLEM - General Chief Complaint: Respiratory Problem Stated Complaint: SOB Time Seen by Provider: 06/15/19 10:37 Source of Information: Reports: Patient History Limitations: Reports: No Limitations - History of Present Illness INITIAL COMMENTS - FREE TEXT/NARRATIVE: Patient is a 69-year-old gentleman who presents to the emergency department via private vehicle this morning with a complaint of redness of breath. Patient states that he was in his recliner watching TV at 9 a.m. and developed shortness of breath. He also felt nauseous, however, did not vomit. Became concerned and decided to have him present to the ER. Patient does have a history of COPD, however, does not use oxygen at home. Patient has history of CABG in 2009. Uneventful since then. Patient denies chest pain, abdominal pain , fever, lower extremity edema, or recent change in medication. Onset: Today Duration: Hour(s): Location: Reports: Chest Severity: Mild Improves with: Reports: None Worsens with: Reports: None Context: Reports: Other (While at rest) Associated Symptoms: Reports: Nausea/Vomiting, Shortness of Breath. Denies: Chest Pain, Cough, cough w sputum, Diaphoresis, Fever/Chills - Related Data Allergies Allergy/AdvReac Type Severity Reaction Status Date / Time No Known Drug Allergies Allergy Other Verified 06/15/19 10:14 Home Meds: Home Meds Albuterol [Proventil HFA] 1 puff INH Q4H PRN 09/01/17 [History] Aspirin [Adult Low Dose Aspirin EC] 81 mg PO BEDTIME 09/01/17 [History] Clopidogrel [Plavix] 75 mg PO BEDTIME 09/01/17 [History] Furosemide 40 mg PO DAILY@0800 09/01/17 [History] Losartan [Cozaar] 50 mg PO DAILY 09/01/17 [History] carvediloL [Carvedilol] 25 mg PO BIDMEALS 09/01/17 [History] Docusate Sodium [Colace] 100 mg PO BID PRN #30 cap 03/07/19 [Rx] Fluticasone/Umeclidin/Vilanter [Trelegy Ellipta 100-62.5-25 MCG] 1 puff INH DAILY 03/07/19 [History] atorvaSTATin [Lipitor] 40 mg PO DAILY 03/07/19 [History] Past Medical History HEENT History: Reports: Impaired Vision Cardiovascular History: Reports: Heart Failure, [place], Stents Respiratory History: Reports: COPD Gastrointestinal History: Reports: Hemorrhoids Genitourinary History: Reports: None Musculoskeletal History: Reports: None Neurological History: Reports: None Endocrine/Metabolic History: Reports: Diabetes, Type II Hematologic History: Reports: Blood Transfusion(s) - Infectious Disease History Infectious Disease History: Reports: Chicken Pox, Influenza - Past Surgical History Head Surgeries/Procedures: Reports: None HEENT Surgical History: Reports: Cataract Surgery Cardiovascular Surgical History: Reports: Coronary Artery Bypass Other Cardiovascular Surgeries/Procedures: 3 vessel bypass 2009 Respiratory Surgical History: Reports: None GI Surgical History: Reports: Colonoscopy Neurological Surgical History: Reports: C-Spine Musculoskeletal Surgical History: Reports: None Social & Family History - Family History Family Medical History: Noncontributory - Caffeine Use Caffeine Use: Reports: Coffee, Soda ED ROS GENERAL - Review of Systems Review Of Systems: Comprehensive ROS is negative, except as noted in HPI. Constitutional: Reports: No Symptoms HEENT: Reports: No Symptoms Respiratory: Reports: Shortness of Breath Cardiovascular: Reports: No Symptoms. Denies: Chest Pain Endocrine: Reports: No Symptoms GI/Abdominal: Reports: Nausea. Denies: Abdominal Pain, Vomiting : Reports: No Symptoms Musculoskeletal: Reports: No Symptoms Skin: Reports: No Symptoms Neurological: Reports: No Symptoms Psychiatric: Reports: No Symptoms Hematologic/Lymphatic: Reports: No Symptoms Immunologic: Reports: No Symptoms ED EXAM, GENERAL - Physical Exam Exam: See Below Exam Limited By: No Limitations General Appearance: Alert, WD/WN, No Apparent Distress Eye Exam: Bilateral Eye: Normal Inspection Nose: Normal Inspection, Normal Mucosa, No Blood Throat/Mouth: Normal Inspection, Normal Oropharynx, No Airway Compromise Head: Atraumatic, Normocephalic Neck: Normal Inspection, Supple, Non-Tender Respiratory/Chest: Chest Non-Tender, Decreased Breath Sounds (Throughout) Cardiovascular: Tachycardia GI/Abdominal: Normal Bowel Sounds, Soft, Non-Tender, No Organomegaly, No Distention, No Abnormal Bruit, No Mass Back Exam: Normal Inspection. No: CVA Tenderness (L), CVA Tenderness (R) Extremities: Normal Inspection, No Pedal Edema Neurological: Alert, Oriented, Normal Cognition Psychiatric: Normal Affect, Normal Mood Skin Exam: Warm, Dry, Intact, Normal Color, No Rash Lymphatic: No Adenopathy EKG INTERPRETATION EKG Date: 06/15/19 Time: 10:50 Rhythm: Other (Sinus tachycardia) Rate (Beats/Min): 109 Comparison: Change From Previous EKG EKG Interpretation Comments: Q waves in septal leads, consider non-STEMI Course - Vital Signs Last Recorded V/S: Last Vital Signs Temp 96.6 F 06/15/19 11:10 Pulse 108 H 06/15/19 11:10 Resp 18 06/15/19 11:10 BP 96/61 06/15/19 11:10 Pulse Ox 95 06/15/19 11:10 - Orders/Labs/Meds Orders: Active Orders 24 hr Category Date Time Status EKG Documentation Completion [RC] ASDIRECTED Care 06/15/19 10:39 Ordered RT Aerosol Therapy [RC] ASDIRECTED Care 06/15/19 11:23 Ordered CULTURE BLOOD [BC] Stat Lab 06/15/19 12:17 Ordered CULTURE BLOOD [BC] Stat Lab 06/15/19 12:17 Ordered LACTIC ACID [CHEM] Stat Lab 06/15/19 12:17 Ordered Azithromycin [Zithromax] 500 mg Med 06/15/19 11:50 Ordered Sodium Chloride 0.9% [Normal Saline] 250 ml IV ONETIME Heparin Sodium/0.45% NaCl [Heparin 25,000 Units in 1/2 Med 06/15/19 12:45 Ordered NS 250 ML] 25,000 units in 250 ml IV TITRATE Blood Culture x2 Reflex Set [OM.PC] Stat Oth 06/15/19 12:17 Ordered Medication Orders Azithromycin 500 mg/ Sodium (Chloride) 250 mls @ 250 mls/hr IV ONETIME ONE Stop: 06/15/19 12:49 Heparin Sodium/Sodium Chloride (Heparin 25,000 Units In 1/2 Ns 250 Ml) 25,000 units in 250 mls @ 8.709 mls/hr IV TITRATE RAFAELA Labs: Laboratory Tests 06/15/19 06/15/19 06/15/19 Range/Units 10:50 10:50 10:50 WBC 14.90 H (5.00-10.00) 10^3/uL RBC 3.90 L (4.50-6.00) 10^6/uL Hgb 12.6 L (13.0-17.0) g/dL Hct 34.9 L (40.0-52.0) % MCV 89.5 (82.0-92.0) fL MCH 32.3 H (27.0-31.0) pg MCHC 36.1 H (32.0-36.0) g/dL RDW 14.4 (11.5-14.5) % Plt Count 164 (150-400) 10^3/uL MPV 9.9 (7.4-10.4) fL Immature Gran % (Auto) 0.3 (0.0-5.0) % Neut % (Auto) 87.6 H (50.0-70.0) % Lymph % (Auto) 3.5 L (20.0-40.0) % Holt % (Auto) 8.1 H (2.0-8.0) % Eos % (Auto) 0.3 L (1.0-3.0) % Baso % (Auto) 0.2 (0.0-1.0) % Immature Gran # (Auto) 0.05 (0.00-0.50) 10^3/uL Neut # (Auto) 13.05 H (2.50-7.00) 10^3/uL Lymph # (Auto) 0.52 L (1.00-4.00) 10^3/uL Holt # (Auto) 1.21 H (0.10-0.80) 10^3/uL Eos # (Auto) 0.04 L (0.10-0.30) 10^3/uL Baso # (Auto) 0.03 (0.00-0.10) 10^3/uL PT TNP INR 1.1 (0.9-1.1) APTT 25.3 (23.1-31.3) SEC Sodium 142 (136-145) mmol/L Potassium 4.6 (3.3-5.3) mmol/L Chloride 104 (98-115) mmol/L Carbon Dioxide 24.7 (21.0-32.0) mmol/L Anion Gap 17.9 H (5-15) mmol/L BUN 25 (6-25) mg/dL Creatinine 1.32 H (0.51-1.17) mg/dL Est Cr Clr Drug Dosing 50.08 mL/min Estimated GFR (MDRD) 54 mL/min Glucose 294 H (75 - 99) mg/dL Calcium 9.9 (8.7-10.3) mg/dL Total Bilirubin 1.9 H (0.2-1.0) mg/dL AST 40 H (15-37) U/L ALT 67 (12-78) U/L Alkaline Phosphatase 86 (46-116) IU/L Troponin I 0.09 H* (0.00-0.070) ng/mL Total Protein 7.4 (6.4-8.2) g/dL Albumin 3.90 (3.00-4.80) g/dL Meds: Medications Generic Name Dose Route Start Last Admin Trade Name Freq PRN Reason Stop Dose Admin Azithromycin 500 mg/ Sodium 250 mls @ 250 mls/hr 06/15/19 11:50 Chloride IV 06/15/19 12:49 ONETIME ONE Heparin Sodium/Sodium Chloride 25,000 units in 250 mls @ 8.709 mls/hr 12:45 Heparin 25,000 Units In 1/2 Ns 250 Ml IV TITRATE RAFAELA 12 UNITS/KG/HR Discontinued Medications Generic Name Dose Route Start Last Admin Trade Name Freq PRN Reason Stop Dose Admin Albuterol/Ipratropium 3 ml 06/15/19 11:23 06/15/19 11:30 Duoneb 3.0-0.5 Mg/3 Ml NEB 06/15/19 11:24 3 ml ONETIME ONE Administration Albuterol/Ipratropium Confirm 06/15/19 11:29 Duoneb 3.0-0.5 Mg/3 Ml Administered 06/15/19 11:30 Dose 3 ml .ROUTE .STK-MED ONE Ceftriaxone Sodium 1 gm 06/15/19 11:49 Rocephin IVPUSH 06/15/19 11:50 ONETIME ONE - Radiology Interpretation Free Text/Narrative:: Chest x-ray shows left lower lobe pneumonia - Re-Assessments/Exams Free Text/Narrative Re-Assessment/Exam: 06/15/19 12:[address] Rees, cardiology at [facility]. He felt that the EKG may indicate a non-STEMI underlining the pneumonia and consideration for transfer. 06/15/19 12:[address] Awad, hospitalist at [facility]. He will accept care for transfer. Patient will be transferred via ground ACLS Departure - Departure Time of Disposition: 12:42 Disposition: DC/Tfer to Acute Hospital 02 Condition: Fair Clinical Impression: Non-ST elevated myocardial infarction (non-STEMI) Pneumonia Qualifiers: Pneumonia type: due to unspecified organism Laterality: left Lung location: lower lobe of lung Qualified Code(s): J18.9 - Pneumonia, unspecified organism - Discharge Information Referrals: Ana Levy MD [Primary Care Provider] - Forms: ED Department Discharge - My Orders Last 24 Hours: My Active Orders 06/15/19 10:39 EKG Documentation Completion [RC] ASDIRECTED 06/15/19 11:23 RT Aerosol Therapy [RC] ASDIRECTED 06/15/19 11:50 Azithromycin [Zithromax] 500 mg Sodium Chloride 0.9% [Normal Saline] 250 ml IV ONETIME 06/15/19 12:17 CULTURE BLOOD [BC] Stat CULTURE BLOOD [BC] Stat LACTIC ACID [CHEM] Stat Blood Culture x2 Reflex Set [OM.PC] Stat 06/15/19 12:45 Heparin Sodium/0.45% NaCl [Heparin 25,000 Units in 1/2 NS 250 ML] 25,000 units in 250 ml IV TITRATE - Assessment/Plan Last 24 Hours: My Active Orders 06/15/19 10:39 EKG Documentation Completion [RC] ASDIRECTED 06/15/19 11:23 RT Aerosol Therapy [RC] ASDIRECTED 06/15/19 11:50 Azithromycin [Zithromax] 500 mg Sodium Chloride 0.9% [Normal Saline] 250 ml IV ONETIME 06/15/19 12:17 CULTURE BLOOD [BC] Stat CULTURE BLOOD [BC] Stat LACTIC ACID [CHEM] Stat Blood Culture x2 Reflex Set [OM.PC] Stat 06/15/19 12:45 Heparin Sodium/0.45% NaCl [Heparin 25,000 Units in 1/2 NS 250 ML] 25,000 units in 250 ml IV TITRATE Assessment:: Pneumonia, EKG changes Plan: Transferred to [facility]
[2019-06-15] MEDS: Albuterol/Ipratropium 3.0-0.5 MG/3 ML Neb Soln NEB ONE (11:30)
[2019-06-15 11:36] LABS: ANION GAP 17.9 mmol/L (5-15)
--- NOTE | 2019-06-15 11:37 | CR ---
[id number] RAD/RAD Chest PA And Lateral EXAM: FRONTAL AND LATERAL CHEST INDICATION: Shortness of breath. COMPARISON: September 01, 2017. DISCUSSION: Development of mild to moderate left mid and lower lung infiltrates. Unless clinically indicated sooner, 4-6 week follow-up exam suggested. The heart is borderline enlarged with mild prominence of the central vasculature, but no bib edema. Prior sternotomy. Hyperaeration consistent with chronic obstructive pulmonary disease. IMPRESSION: 1. Pneumonia in the lingula and left lower lobe. Daniel Méndez MD 06/15/19 1136 Thank you for allowing us to participate in the care of your patient.
[2019-06-15] MEDS: Albuterol/Ipratropium 3.0-0.5 MG/3 ML Neb Soln ONE (12:46)
[2019-06-15] MEDS: cefTRIAXone 1 GM Vial IVPUSH ONE (12:57)
[2019-06-15] MEDS: Azithromycin 500 MG in Sodium Chloride 0.9% 250 ML IV ONE (12:58)
[2019-06-15] MEDS: Heparin Sodium/0.45% NaCl 25,000 UNITS/250 ML BAG IV SCH (13:06)
[2019-06-15] MEDS: Azithromycin 250 MG Tab PO ONE (13:13)
== END 2019-06-15 13:25 ==
LOC: KA.ED 10:00
DX: I21.4 Non-ST elevation (NSTEMI) myocardial infarction (principal); J44.0 Chronic obstructive pulmonary disease with (acute) lower respiratory infection; J18.9 Pneumonia, unspecified organism; I25.2 Old myocardial infarction; I50.9 Heart failure, unspecified; Z79.02 Long term (current) use of antithrombotics/antiplatelets; Z79.82 Long term (current) use of aspirin; Z79.899 Other long term (current) drug therapy; Z95.1 Presence of aortocoronary bypass graft; Z95.5 Presence of coronary angioplasty implant and graft
CPT/HCPCS: 71046; 80053; 83605; 84484; 85025; 85610; 85730; 87040; 87077; 93005; 94640; 96365; 96375; 99285-25; A9270-GY; J0696; J1644; J7620-GY